=== PATIENT | male | born 1960 | race Caucasian/White ===

== ENCOUNTER 2018-06-22 17:06 | Emergency (ER) | payer OTHER ==
[~2018-06-22] VITALS: Ht 180.3 cm; Wt 85.0 kg
[2018-06-22] MEDS ORDERED: LIDOCAINE-MPF 1%, 5ML ONE ×2 (17:13→21:02)
[2018-06-22] MEDS ORDERED: BUPIVACAINE 0.25% ONE ×2 (17:26→21:02)
[2018-06-22] MEDS ORDERED: BUPIVACAINE/PF 0.5% INFIL ONE (17:30)
[2018-06-22] MEDS ORDERED: LIDOCAINE 2%, 20ML SQ ONE (17:30)
[2018-06-22] MEDS ORDERED: CEFAZOLIN PMX 1GM/50ML 50 ML IVPB ONE (17:30)
[2018-06-22] MEDS ORDERED: DIPH,PERTUSS(ACELL),TET VAC/PF 0.5 ML IM-VACC ONE ×2 (17:30→17:45)
[2018-06-22] MEDS ORDERED: CEFAZOLIN PMX 1GM/50ML 50 ML ONE (17:40)
--- NOTE | 2018-06-22 18:05 | NUR ---
PATIENT WITH MD CHU FOR UPDATE ON PLAN OF CARE . PATIENT WITH FAMILY AT BS. ABX INFUSING
[2018-06-22] MEDS ORDERED: HYDROmorphone 1 MG/ML, 1ML ONE ×3 (18:31→21:03)
[2018-06-22] MEDS: HYDROmorphone 2 MG/ML, 1ML IVPush PRN ×2 (18:34→19:13)
--- NOTE | 2018-06-22 19:04 | NUR ---
REPORT TO REDD JORDAN
--- NOTE | 2018-06-22 19:19 | NUR ---
Pt medicated for increasing pain, Zambrano at bedside for eval
--- NOTE | 2018-06-22 19:46 | NUR ---
Consent signed, awaiting MD for procedure
--- NOTE | 2018-06-22 19:57 | NUR ---
Pt requesting to stand at side of bed, daughter at bedside states she will stay will him. Pt has steady gait, "I just need to stretch"
--- NOTE | 2018-06-22 20:48 | NUR ---
Report to Pretty JORDAN
[2018-06-22 20:57] VITALS: BP 118/79
--- NOTE | 2018-06-22 21:05 | NUR ---
Patient ambulating in the halls with a steady gait.
--- NOTE | 2018-06-22 21:30 | NUR ---
MD Juan Manuel at bedside repairing finger.
--- NOTE | 2018-06-22 22:03 | NUR ---
REPORT FROM JULIAN ROSENBERG. POC IS LUCIUS.
--- NOTE | 2018-06-22 22:23 | NUR ---
DC EDUCATION PROVIDED, PT DEMONSTRATES UNDERSTANDING. PT AMBULATED STEADILY TO DC WITH RN AND DAUGHTER. DAUGHTER TO TRANSPORT PT HOME.
== END 2018-06-22 22:25 | disposition home or self-care (01) ==
LOC: EDBD → MERGE 17:06 → ED 22:19
DX: S63.291A Dislocation of distal interphalangeal joint of left index finger, initial encounter (principal); X58.XXXA Exposure to other specified factors, initial encounter; Y93.89 Activity, other specified; Y92.89 Other specified places as the place of occurrence of the external cause; Y99.8 Other external cause status
CPT/HCPCS: 26951; 73140; 90471; 90715; 96365; 96366; 96375; 96376; 99285; J0690; J1170; 64450